=== PATIENT | female | born 1960 | race Caucasian/White ===

== ENCOUNTER → 2017-02-22 | Outpatient (CLI) | payer MEDICARE, OTHER ==
--- NOTE | 2017-02-22 12:26 | MR ---
EXAMINATION TYPE: MR cspine/tspine wo/w con DATE OF EXAM: 02/22/2017 COMPARISON: NONE HISTORY: WHITE MATTER CHANGE, CERVICAL PAIN TECHNIQUE: Multiplanar, multisequence images of the lumbar spine is performed without and with IV contrast, util izing 20 mL intravenous MultiHance FINDINGS: Sagittal images of the lumbar spine show vertebral body heights and alignment to appear sat isfactory. Disc desiccation is seen at C5-C6 and C6-C7. The remaining intervertebral discs demonstrat e normal heights and hydration. Small disc osteophyte complexes without spinal canal stenosis are se en at C2-C3, C3-C4, C4-C5, C5-C6, and C6-C7. No evidence for neuroforaminal narrowing. Uncovertebral hypertrophy are seen at C5-C6 and C6-C7. Degenerative endplate changes are also visualized at these l evels. The conus medullaris is normal in position and signal. The bone marrow signal intensity is wi thin normal limits. There is straightening of the usual cervical lordosis, which can be due to muscul ar strain or patient positioning. There is no no focal disc disease, or facet degenerative change at any thoracic level. There is no s oskar canal stenosis, neural foraminal narrowing, or evidence of nerve root compromise throughout the thoracic spine. No abnormal enhancement is appreciated within the cervical or thoracic spine. No cervical or thoracic white matter plaques are appreciated. No abnormal cord signal at any level. IMPRESSION: 1. No evidence of demyelinating disease or abnormal enhancement within the cervical or thoracic spine . 2. Mild degenerative disc disease of the cervical spine most pronounced at C5-C6 and C6-C7. 3. Straightening of the usual cervical lordosis which may be related to muscular strain or patient po sitioning.
--- NOTE | 2017-02-23 11:56 | MM ---
Reason for exam: screening (asymptomatic). Last mammogram was performed 1 year ago. History: Patient is postmenopausal. Family history of breast cancer in maternal aunt at age 40. Benign excisional biopsy of the right breast, 1998. Physical Findings: A clinical breast exam by your physician is recommended on an annual basis and results should be correlated with mammographic findings. MG 3D Screening Mammo W/Cad Bilateral CC and MLO view(s) were taken. Prior study comparison: February 20, 2016, bilateral MG 3d screening mammo w/cad. July 22, 2012, bilateral digital screening mammo w/CAD. July 07, 2011, bilateral digital screening mammo w/CAD. There are scattered fibroglandular densities. There is chronic nodularity bilaterally. No significant changes when compared with prior studies. ASSESSMENT: Negative, BI-RAD 1 RECOMMENDATION: Routine screening mammogram of both breasts in 1 year.
== END | disposition home or self-care (01) ==
LOC: RADMRIMAIN 10:13
PROVIDERS: ATTEND Family Medicine
DX: Z12.31 Encounter for screening mammogram for malignant neoplasm of breast (principal); M50.322 Other cervical disc degeneration at C5-C6 level
CPT/HCPCS: 77063; 72156; 72157; G0202; A9577

== ENCOUNTER → 2017-06-08 | Outpatient (CLI) | payer MEDICARE, OTHER ==
[2017-06-08 11:30] LABS: Basophils % (A) 0 %; CH 29.5; CHCM 32.3; Eosinophils # (A) 0.1 k/uL (0-0.7); Eosinophils % (A) 2 %; HCT 39.3 % (34.0-46.0); HDW 2.34; HGB 12.6 gm/dL (11.4-16.0); Luc # (Auto) 0.09; Luc % (Auto) 2; Lymphocytes # (A) 2.9 k/uL (1.0-4.8); Lymphocytes % (A) 49 %; MCH 29.3 pg (25.0-35.0); MCV 91.8 fL (80.0-100.0); Mean Platelet Volume 7.5; Monocytes # (A) 0.3 k/uL (0-1.0); Monocytes % (A) 6 %; Neutrophils # (A) 2.5 k/uL (1.3-7.7); Neutrophils % (A) 42 %; RBC 4.28 m/uL (3.80-5.40); RDW 12.8 % (11.5-15.5); WBC 5.9 k/uL (3.8-10.6); WBC (Perox) 5.56
[2017-06-08 11:35] LABS: ALT 62 U/L (9-52); AST 51 U/L (14-36); Alkaline Phosphatase 84 U/L (38-126); Anion Gap 10 mmol/L; Blood Urea Nitrogen 6 mg/dL (7-17); C Reactive Protein 5.8 mg/L (<10.0); Carbon Dioxide 26 mmol/L (22-30); Chloride 107 mmol/L (98-107); Creatine Kinase 50 U/L (30-135); Glucose 103 mg/dL (74-99); LDH 607 U/L (313-618); Non-African American GFR(MDRD) >60 (>60 ml/min/1.73 sqM); Phosphorus 4.9 mg/dL (2.5-4.5); Potassium 3.9 mmol/L (3.5-5.1); Sodium 143 mmol/L (137-145); Total Bilirubin 0.2 mg/dL (0.2-1.3); Total Protein 6.5 g/dL (6.3-8.2); Uric Acid 7.1 mg/dL (3.7-7.4)
[2017-06-08 11:36] LABS: Rheumatoid Factor, Qnt <9 IU/mL (<12)
[2017-06-08 12:22] LABS: Erythrocyte Sedimentation Rate 24 mm/hr (0-20)
[2017-06-08 17:55] LABS: ANA w/Reflex to Titer NEGATIVE (NEGATIVE); Cyclic Citrull Pep IgG Unit <0.5 U/mL; Cyclic Citrullinated Pep IgG NEGATIVE (NEGATIVE); Tis Transglutaminase IgA Unit <0.5 AI; Tis Transglutaminase IgG Unit <0.8 U/mL
[2017-06-09 12:19] LABS: Vitamin D, 1, 25-Dihydroxy 29 pg/mL (20 - 79)
[2017-06-09 12:51] LABS: HLA B27 Comment SEEBELOW
[2017-06-09 14:24] LABS: Hepatits C Virus RNA, Quant <12 IU/mL (<12); LOG HCV IU/mL <1.08 (<1.08)
[2017-06-11 10:03] LABS: Lyme IgG/IgM 0.1 Index; Lyme IgG/IgM Interp NEGATIVE (NEGATIVE)
[2017-06-14 08:13] LABS: Mis test requested (Blood) 14-3-3 eta Protein
== END | disposition home or self-care (01) ==
LOC: LABWHC1 10:22
PROVIDERS: ATTEND Physical Medicine & Rehabilitation
DX: M50.122 Cervical disc disorder at C5-C6 level with radiculopathy (principal); M47.22 Other spondylosis with radiculopathy, cervical region; G43.719 Chronic migraine without aura, intractable, without status migrainosus; F41.9 Anxiety disorder, unspecified; M79.7 Fibromyalgia
CPT/HCPCS: 36415; 80053; 82164; 82306; 82550; 82553; 82607; 82652; 83516; 83520; 83615; 83970; 84100; 84165; 84207; 84425; 84439; 84443; 84550; 85025; 85652; 86038; 86060; 86140; 86200; 86235; 86431; 86618; 86812; 87522

== ENCOUNTER → 2018-03-01 | Outpatient (CLI) | payer MEDICARE, OTHER ==
--- NOTE | 2018-03-03 11:14 | MM ---
Reason for exam: screening (asymptomatic). Last mammogram was performed 1 year ago. History: Patient is postmenopausal. Family history of breast cancer in maternal aunt at age 40. Benign excisional biopsy of the right breast, 1998. Physical Findings: A clinical breast exam by your physician is recommended on an annual basis and results should be correlated with mammographic findings. MG 3D Screening Mammo W/Cad Bilateral CC and MLO view(s) were taken. Prior study comparison: February 22, 2017, bilateral MG 3d screening mammo w/cad. February 20, 2016, bilateral MG 3d screening mammo w/cad. There are scattered fibroglandular densities. No significant changes when compared with prior studies. ASSESSMENT: Benign, BI-RAD 2 RECOMMENDATION: Routine screening mammogram of both breasts in 1 year.
== END | disposition home or self-care (01) ==
LOC: RADMAMWWP 09:46
PROVIDERS: ATTEND Family Medicine
DX: Z12.31 Encounter for screening mammogram for malignant neoplasm of breast (principal)
CPT/HCPCS: 77063; 77067

== ENCOUNTER → 2018-03-21 | Outpatient (CLI) | payer MEDICARE, OTHER ==
--- NOTE | 2018-03-21 14:16 | US ---
EXAMINATION TYPE: US carotid duplex BILAT DATE OF EXAM: 03/21/2018 COMPARISON: NONE CLINICAL HISTORY: R51 chronic headaches. family hx of strokes. No HTN. No high cholesterol. No hx of stroke. EXAM MEASUREMENTS: RIGHT: Peak Systolic Velocity (PSV) cm/sec ----- Right CCA: 77.6 ----- Right ICA: 90.1 ----- Right ECA: 65.3 ICA/CCA ratio: 1.2 RIGHT: End Diastole cm/sec ----- Right CCA: 30.3 ----- Right ICA: 43.5 ----- Right ECA: 13.0 LEFT: Peak Systolic Velocity (PSV) cm/sec ----- Left CCA: 59.8 ----- Left ICA: 92.7 ----- Left ECA: 54.5 ICA/CCA ratio: 1.5 LEFT: End Diastole cm/sec ----- Left CCA: 27.6 ----- Left ICA: 34.4 ----- Left ECA: 12.5 VERTEBRALS (direction of flow): Right Vertebral: Antegrade Left Vertebral: Antegrade Rhythm: Normal IMPRESSION: No elevated velocities, significant stenosis, plaque or wall thickening. Criteria for Assigning % of Stenosis / Diameter reduction (Estimation based on the indirect measurements of the internal carotid artery velocities (ICA PSV). 1. Normal (no stenosis)=ICA PSV < 125 cm/s: ratio < 2.0: ICA EDV<40 cm/s. 2. Less than 50% stenosis=ICA PSV < 125 cm/s: ratio < 2.0: ICA EDV<40 cm/s. 3. 50 to 69% stenosis=ICA PSV of 125 to 230 cm/s: ration 2.0 ? 4.0: ICA EDV 40-100 cm/s. 4. Greater than 70% stenosis to near occlusion= ICA PSV > 230 cm/s: ratio > 4.0: ICA EDV > 100 cm/s. 5. Near occlusion= ICA PSV velocities may be low or undetectable: variable ratio and ICA EDV. 6. Total occlusion=unable to detect flow.
--- NOTE | 2018-03-21 15:36 | BD ---
EXAMINATION TYPE: Axial Bone Density DATE OF EXAM: 03/21/2018 COMPARISON: NONE CLINICAL HISTORY: Height: 5'1 Weight: 226 FRAX RISK QUESTIONS: Secondary Osteoporosis: RISK FACTORS HISTORY OF: Surgery to Spine/ When: lumbar 2009 Postmenopausal woman: y MEDICATIONS: Additional Medications: Additional History: EXAM MEASUREMENTS: Bone mineral densitometry was performed using the Savelli System. Bone mineral density about the R hip (g/cm2): 0.883 Bone mineral density about the L hip (g/cm2): 0.859 T Score values are as follows: -----R Neck: -1.1 -----L Neck: -1.3 -----R Total: 0.8 -----L Total: 1.2 Bone mineral density about the L Wrist (g/cm2): 0.673 T Score values are as follows: -----Dist. R+U: -0.1 -----Prox. R+U: -0.1 -----Radius total: 0.0 IMPRESSION: No evidence for osteoporosis or osteopenia. NOTE: T-SCORE=SD OF THE YOUNG ADULT MEAN.
== END | disposition home or self-care (01) ==
LOC: RADUSWWP 13:09
PROVIDERS: ATTEND Family Medicine
DX: R51 Headache (principal); Z13.820 Encounter for screening for osteoporosis; Z82.49 Family history of ischemic heart disease and other diseases of the circulatory system
CPT/HCPCS: 77080; 93880

== ENCOUNTER → 2018-09-13 | Outpatient (CLI) | payer MEDICARE, OTHER ==
--- NOTE | 2018-09-13 15:56 | CT ---
EXAMINATION TYPE: CT sinus wo con DATE OF EXAM: 09/13/2018 COMPARISON: NONE HISTORY: Cough and sinus congestion x 3+ months. CT DLP: 587.5 mGycm. Automated Exposure Control for Dose Reduction was Utilized. TECHNIQUE: CT scan of the sinuses is performed without contrast, axial images are obtained, coronal r eformatted images are also reviewed. FINDINGS: There is 2.2 cm mucous retention cyst or polyp in inferior right maxillary sinus. There is additional 1.3 cm anterolateral mucous retention cyst or polyp in the right maxillary sinus. There is smaller 10 x 5 mm mucous retention cyst or polyp anterior left maxillary sinus. Remainder paranasal sinuses are clear without suspicious opacification or air-fluid levels The ostiomeatal complex is pat ent bilaterally on the coronal images. Visualized portion of mastoid air cells show no abnormal opacification. The globes are intact bilate rally. IMPRESSION: Chronic maxillary sinus disease. No acute sinusitis.
--- NOTE | 2018-09-14 03:26 | XR ---
EXAMINATION TYPE: XR chest 2V DATE OF EXAM: 09/13/2018 COMPARISON: None HISTORY: 58-year-old female with cough TECHNIQUE: Frontal and lateral views FINDINGS: The cardiomediastinal silhouette, aorta, and pulmonary vasculature are within normal limits. Some haz y lower lung densities related to overlying soft tissue densities. No arlene consolidation or pleural effusion seen. IMPRESSION: No acute cardiopulmonary process.
== END ==
LOC: RADCTMAIN 13:35
PROVIDERS: ATTEND Otolaryngology
DX: J32.0 Chronic maxillary sinusitis (principal); R05 Cough
CPT/HCPCS: 70486; 71046

== ENCOUNTER → 2018-09-30 | Outpatient (CLI) | payer MEDICARE, OTHER ==
--- NOTE | 2018-09-30 11:12 | CT ---
EXAMINATION TYPE: CT urogram wo/w con DATE OF EXAM: 09/30/2018 COMPARISON: None HISTORY: Hematuria CT DLP: 3296 mGycm CONTRAST: Performed and without and with IV Contrast, patient injected with 100 mL of Isovue 300. CT Urography was performed with unenhanced followed by enhanced images of the kidneys, ureters and ur inary bladder. Delayed images were obtained. 3d reconstruction was performed at a separate work sta tion. FINDINGS: KIDNEYS/BLADDER: No hydronephrosis. No nephrolithiasis. No distinct solid renal mass. 1 cm cyst up per pole right kidney. Urinary bladder grossly unremarkable. Poor opacification of the distal right u reter throughout the course of the examination. Left ureter is visualized throughout its course and a ppears unremarkable. LUNG BASES-: No visible nodule. No infiltrate. LIVER/GB: No calcified gallstones. No space occupying hepatic lesion. Biliary tree is of normal ca liber. PANCREAS: No inflammation. No distinct mass. SPLEEN: No splenic enlargement. No lesion seen. ADRENALS: No nodule. No thickening. BOWEL: Normal appendix. Normal bowel caliber. No inflammation. GENITAL ORGANS: Focal ovarian calcifications noted. Uterus is unremarkable. LYMPH NODES: No greater than 1cm abdominal or pelvic lymph nodes are appreciated. AORTA: No significant abnormality. OSSEOUS STRUCTURES: No significant abnormality is seen. OTHER: No significant additional abnormality is seen. IMPRESSION: 1. No distinct abnormality identified to account for the patient's symptoms however the distal right ureter cannot be visualized throughout the course of the examination. Correlate clinically.
== END | disposition home or self-care (01) ==
LOC: RADCTMAIN 08:29
PROVIDERS: ATTEND Urology
DX: R31.9 Hematuria, unspecified (principal); Z88.0 Allergy status to penicillin; Z88.8 Allergy status to other drugs, medicaments and biological substances
CPT/HCPCS: 74178; 74400; Q9967

== ENCOUNTER → 2019-03-02 | Outpatient (CLI) | payer MEDICARE, OTHER ==
--- NOTE | 2019-03-03 09:21 | MM ---
Reason for exam: screening (asymptomatic). Last mammogram was performed 1 year ago. History: Patient is postmenopausal. Family history of breast cancer in maternal aunt at age 40. Benign excisional biopsy of the right breast, 1998. Physical Findings: A clinical breast exam by your physician is recommended on an annual basis and results should be correlated with mammographic findings. MG 3D Screening Mammo W/Cad Bilateral CC and MLO view(s) were taken. Prior study comparison: March 01, 2018, bilateral MG 3d screening mammo w/cad. February 22, 2017, bilateral MG 3d screening mammo w/cad. The breast tissue is heterogeneously dense. This may lower the sensitivity of mammography. There is no discrete abnormality. No significant changes when compared with prior studies. ASSESSMENT: Negative, BI-RAD 1 RECOMMENDATION: Routine screening mammogram of both breasts in 1 year.
== END | disposition home or self-care (01) ==
LOC: RADMAMWWP 08:58
PROVIDERS: ATTEND Family Medicine
DX: Z12.31 Encounter for screening mammogram for malignant neoplasm of breast (principal)
CPT/HCPCS: 77063; 77067

== ENCOUNTER 2019-08-21 10:33 | Observation (INO) | payer MEDICARE, OTHER ==
[2019-08-21] MEDS ORDERED: ASPIRIN 81 MG PO STA (10:55)
[2019-08-21] MEDS ORDERED: NITROGLYCERIN SL TABS 0.4 MG TAB SUBLINGUAL STA ×3 (10:55)
--- NOTE | 2019-08-21 11:05 | ED ---
General Adult HPI - General Chief complaint: Chest Pain Stated complaint: Abn EKG/jaw pain Time Seen by Provider: 08/21/19 10:48 Source: patient, RN notes reviewed Mode of arrival: ambulatory Limitations: no limitations - History of Present Illness Initial comments: Patient is a pleasant 59-year-old female presenting to the emergency Department with chest discomfort. Discomfort is described as tightness and considered mild rated 3 or 4/10. Discomfort started this morning after cleaning off her car. Patient did get a little bit sweaty with walking into the doctor's office. Patient went to urgent care and was advised to come to the hospital. Patient has been having some left jaw discomfort over the past few days. No history of similar symptoms previously. No associated nausea or dyspnea. No calf pain - Related Data Home Medications Medication Instructions Recorded Confirmed ALPRAZolam [Xanax] 0.25 mg PO TID PRN 08/21/19 08/21/19 Allergy Relief (Unknown) 1 tab PO DAILY PRN 08/21/19 08/21/19 Benzonatate [Tessalon Perles] 200 mg PO TID PRN 08/21/19 08/21/19 Cyclobenzaprine [Flexeril] 10 mg PO HS PRN 08/21/19 08/21/19 Fluticasone Nasal [place] [Flonase 1 spray EA NOSTRIL DAILY 08/21/19 08/21/19 Nasal [place]] Montelukast [Singulair] 10 mg PO DAILY PRN 08/21/19 08/21/19 traMADol HCL 50 mg PO TID PRN 08/21/19 08/21/19 Allergies Allergy/AdvReac Type Severity Reaction Status Date / Time Penicillins Allergy Unknown Verified 08/21/19 12:09 Childhood prochlorperazine AdvReac Hallucinati Verified 08/21/19 12:09 [From Compazine] ons Review of Systems ROS Statement: Those systems with pertinent positive or pertinent negative responses have been documented in the HPI. ROS Other: All systems not noted in ROS Statement are negative. Constitutional: Denies: fever Eyes: Denies: eye pain ENT: Denies: ear pain, throat pain, dental pain Respiratory: Denies: cough, dyspnea Cardiovascular: Reports: chest pain. Denies: palpitations Gastrointestinal: Denies: abdominal pain, vomiting Genitourinary: Denies: dysuria Musculoskeletal: Denies: back pain Skin: Denies: rash Neurological: Denies: weakness Past Medical History Past Medical History: No Reported History History of Any Multi-Drug Resistant Organisms: None Reported Past Surgical History: Back Surgery, Bladder Surgery, Section, Tonsillectomy Past Psychological History: Anxiety Smoking Status: Never smoker Past Alcohol Use History: None Reported Past Drug Use History: None Reported General Exam Limitations: no limitations General appearance: alert, in no apparent distress Head exam: Present: normocephalic Eye exam: Present: normal appearance ENT exam: Present: normal oropharynx Neck exam: Present: normal inspection Respiratory exam: Present: normal lung sounds bilaterally Cardiovascular Exam: Present: regular rate, normal rhythm Expanded Peripheral pulses: 2+: Radial (R), Radial (L), Posterior Tibialis (R), Posterior Tibialis (L), Dorsalis Pedis (R), Dorsalis Pedis (L) GI/Abdominal exam: Present: soft. Absent: tenderness Extremities exam: Present: normal inspection. Absent: calf tenderness Neurological exam: Present: alert Psychiatric exam: Present: normal affect, normal mood Skin exam: Present: normal color Course Vital Signs 08/21/19 08/21/19 08/21/19 10:40 10:51 11:00 Temperature 98 F Pulse Rate 80 73 Respiratory 18 25 H 27 H Rate Blood Pressure 150/87 O2 Sat by Pulse 97 Oximetry 08/21/19 08/21/19 11:41 11:47 Temperature Pulse Rate 80 82 Respiratory 18 18 Rate Blood Pressure 143/95 128/79 O2 Sat by Pulse 98 97 Oximetry EKG Findings - EKG Comments: EKG Findings:: Normal sinus rhythm 74. SC 150. QRS 84. QT 360. QTC 399. Normal axis. Normal QRS. No acute ST change. Medical Decision Making - Medical Decision Making Patient reevaluated and resting comfortably in bed. Chest discomfort has improved. Jaw discomfort did have some transient improvement with nitroglycerin. Patient updated on results and plan. Case was discussed with Dr Federica Meade, who will admit for Dr. crandall. - Lab Data Result diagrams: 08/21/19 11:01 08/21/19 11:01 Lab Results 08/21/19 08/21/19 08/21/19 Range/Units 11:01 11: 11: WBC 8.4 (3.8-10.6) k/uL RBC 4.39 (3.80-5.40) m/uL Hgb 13.4 (11.4-16.0) gm/dL Hct 39.6 (34.0-46.0) % MCV 90.1 (80.0-100.0) fL MCH 30.5 (25.0-35.0) pg MCHC 33.9 (31.0-37.0) g/dL RDW 12.0 (11.5-15.5) % Plt Count 324 (150-450) k/uL Neutrophils % 51 % Lymphocytes % 41 % Monocytes % 4 % Eosinophils % 1 % Basophils % 1 % Neutrophils # 4.2 (1.3-7.7) k/uL Lymphocytes # 3.4 (1.0-4.8) k/uL Monocytes # 0.4 (0-1.0) k/uL Eosinophils # 0.1 (0-0.7) k/uL Basophils # 0.1 (0-0.2) k/uL PT 10.1 (9.0-12.0) sec INR 1.0 (<1.2) APTT 23.2 (22.0-30.0) sec D-Dimer 0.58 (<0.60) mg/L FEU Sodium 138 (137-145) mmol/L Potassium 3.9 (3.5-5.1) mmol/L Chloride 105 (98-107) mmol/L Carbon Dioxide 21 L (22-30) mmol/L Anion Gap 12 mmol/L BUN 11 (7-17) mg/dL Creatinine 0.76 (0.52-1.04) mg/dL Est GFR (CKD-EPI)AfAm >90 (>60 ml/min/1.73 sqM) Est GFR (CKD-EPI)NonAf 86 (>60 ml/min/1.73 sqM) Glucose 90 (74-99) mg/dL Calcium 9.6 (8.4-10.2) mg/dL Magnesium 1.6 (1.6-2.3) mg/dL Total Bilirubin 0.5 (0.2-1.3) mg/dL AST 37 H (14-36) U/L ALT 38 H (4-34) U/L Alkaline Phosphatase 84 (38-126) U/L Troponin I (0.000-0.034) ng/mL Total Protein 7.0 (6.3-8.2) g/dL Albumin 4.1 (3.5-5.0) g/dL 08/21/19 Range/Units 11:01 WBC (3.8-10.6) k/uL RBC (3.80-5.40) m/uL Hgb (11.4-16.0) gm/dL Hct (34.0-46.0) % MCV (80.0-100.0) fL MCH (25.0-35.0) pg MCHC (31.0-37.0) g/dL RDW (11.5-15.5) % Plt Count (150-450) k/uL Neutrophils % % Lymphocytes % % Monocytes % % Eosinophils % % Basophils % % Neutrophils # (1.3-7.7) k/uL Lymphocytes # (1.0-4.8) k/uL Monocytes # (0-1.0) k/uL Eosinophils # (0-0.7) k/uL Basophils # (0-0.2) k/uL PT (9.0-12.0) sec INR (<1.2) APTT (22.0-30.0) sec D-Dimer (<0.60) mg/L FEU Sodium (137-145) mmol/L Potassium (3.5-5.1) mmol/L Chloride (98-107) mmol/L Carbon Dioxide (22-30) mmol/L Anion Gap mmol/L BUN (7-17) mg/dL Creatinine (0.52-1.04) mg/dL Est GFR (CKD-EPI)AfAm (>60 ml/min/1.73 sqM) Est GFR (CKD-EPI)NonAf (>60 ml/min/1.73 sqM) Glucose (74-99) mg/dL Calcium (8.4-10.2) mg/dL Magnesium (1.6-2.3) mg/dL Total Bilirubin (0.2-1.3) mg/dL AST (14-36) U/L ALT (4-34) U/L Alkaline Phosphatase (38-126) U/L Troponin I <0.012 (0.000-0.034) ng/mL Total Protein (6.3-8.2) g/dL Albumin (3.5-5.0) g/dL - Radiology Data Radiology results: image reviewed (Chest x-ray shows no acute process) Disposition Clinical Impression: Chest pain Disposition: ADMITTED IP TO THIS HOSP Is patient prescribed a controlled substance at d/c from ED?: No Referrals: Rosenda Watkins MD [Primary Care Provider] - 1-2 days Decision Time: 12:31
[2019-08-21 11:27] LABS: ALT 38 U/L (4-34); AST 37 U/L (14-36); African American GFR (CKD) >90 (>60 ml/min/1.73 sqM); Albumin 4.1 g/dL (3.5-5.0); Alkaline Phosphatase 84 U/L (38-126); Anion Gap 12 mmol/L; Blood Urea Nitrogen 11 mg/dL (7-17); Calcium 9.6 mg/dL (8.4-10.2); Carbon Dioxide 21 mmol/L (22-30); Chloride 105 mmol/L (98-107); Glucose 90 mg/dL (74-99); Magnesium 1.6 mg/dL (1.6-2.3); Non-African American GFR(CKD) 86 (>60 ml/min/1.73 sqM); Potassium 3.9 mmol/L (3.5-5.1); Sodium 138 mmol/L (137-145); Total Bilirubin 0.5 mg/dL (0.2-1.3)
[2019-08-21 11:32] LABS: D-Dimer 0.58 mg/L FEU (<0.60); Partial Thromboplastin Time 23.2 sec (22.0-30.0); Prothrombin Time 10.1 sec (9.0-12.0)
--- NOTE | 2019-08-21 11:44 | XR ---
EXAMINATION TYPE: XR chest 2V DATE OF EXAM: 08/21/2019 COMPARISON: 09/13/2018 HISTORY: Chest pain TECHNIQUE: Frontal and lateral views of the chest are obtained. FINDINGS: There is no focal air space opacity, pleural effusion, or pneumothorax seen. The cardiac silhouette size is within normal limits. The osseous structures are intact. Mild multilevel degener ative change of the spine. IMPRESSION: No acute cardiopulmonary process.
[2019-08-21 11:49] LABS: Basophils # (A) 0.1 k/uL (0-0.2); Basophils % (A) 1 %; Eosinophils # (A) 0.1 k/uL (0-0.7); Eosinophils % (A) 1 %; HCT 39.6 % (34.0-46.0); HGB 13.4 gm/dL (11.4-16.0); Lymphocytes # (A) 3.4 k/uL (1.0-4.8); Lymphocytes % (A) 41 %; MCH 30.5 pg (25.0-35.0); MCHC 33.9 g/dL (31.0-37.0); MCV 90.1 fL (80.0-100.0); Mean Platelet Volume 7.9; Monocytes # (A) 0.4 k/uL (0-1.0); Monocytes % (A) 4 %; Neutrophils # (A) 4.2 k/uL (1.3-7.7); Neutrophils % (A) 51 %; Platelet Count 324 k/uL (150-450); RBC 4.39 m/uL (3.80-5.40); WBC 8.4 k/uL (3.8-10.6)
[2019-08-21] MEDS ORDERED: ACETAMINOPHEN TAB 500 MG TAB PO STA (12:14)
[2019-08-21] MEDS ORDERED: NITROGLYCERIN SL TABS 0.4 MG TAB SUBLINGUAL PRN (12:31)
[2019-08-21] MEDS ORDERED: MORPHINE SULFATE 4 MG/ML SYRINGE IV STA (12:32)
[2019-08-21] MEDS ORDERED: BENZONATATE 100 MG CAP PO PRN (13:05)
[2019-08-21] MEDS ORDERED: traMADol 50 MG TAB PO PRN (13:05)
[2019-08-21] MEDS ORDERED: ALPRAZolam 0.25 MG TAB PO PRN (13:05)
[2019-08-21] MEDS ORDERED: CYCLOBENZAPRINE 10 MG TAB PO PRN (13:05)
[2019-08-21] MEDS ORDERED: MONTELUKAST 10 MG TAB PO PRN (13:05)
[2019-08-21] MEDS ORDERED: ONDANSETRON 4 MG/2 ML VIAL IVP PRN (13:06)
[2019-08-21] MEDS ORDERED: IBUPROFEN 400 MG TAB PO PRN (13:06)
--- NOTE | 2019-08-21 13:09 | P.HPIM ---
History of Present Illness H&P Date: 08/21/19 This is a 59-year-old female who presented to the emergency department on 08/21/2019 following to the urgent care for chest pressure and jaw pain. Patient states that the jaw pain started on 08/17/2019. Patient states on 08/20/2019 she began experiencing diarrhea that lasted 2 hours. Patient states she is also experiencing headache where she describes that the top of her head, heartburn, indigestion. Patient states that her chest pressure is midsternal to left breast and feels tight. Nothing has relieved jaw pain or chest pain. Patient states that the pain is constant in both areas. Patient was seen in urgent care today on 08/21/2019 for these complaints in which an ECG was done. Patient was told that the EKG was abnormal and directed to be transferred to the emergency department. Patient was given nitroglycerin in the emergency department. Patient states she signed out AMA from urgent care and drove herself immediately to the emergency department. Patient is known to Dr. Sam salmeron. Patient states that she has had no previous cardiac history. Patient states that her family has a strong history of stroke. Patient states she had carotid Dopplers in 2019. Patient states she does not follow estrogen EKG completed. Patient states she has never had an echocardiogram or stress test. Patient states medical history otherwise is unremarkable. Initial troponin negative, EKG showing normal sinus rhythm with sinus arrhythmia, with a rate of 74 bpm. Chest x-ray completed showing no acute cardiopulmonary process.Patient denies any shortness of breath, patient denies any fever or chills, patient denies any nausea vomiting or any further diarrhea. Patient denies urinary bu rning or frequency. Patient denies being ill recently. Patient states she received her flu vaccination in June 2019. Cardiology services will be consulted. Serial troponins will be drawn. Patient will be admitted to observation with telemetry. Review of Systems Please see HPI otherwise unremarkable Past Medical History Past Medical History: No Reported History History of Any Multi-Drug Resistant Organisms: None Reported Past Surgical History: Back Surgery, Bladder Surgery, Section, Tonsillectomy Past Psychological History: Anxiety Smoking Status: Never smoker Past Alcohol Use History: None Reported Past Drug Use History: None Reported Medications and Allergies Home Medications Medication Instructions Recorded Confirmed Type ALPRAZolam [Xanax] 0.25 mg PO TID PRN 08/21/19 08/21/19 History Allergy Relief (Unknown) 1 tab PO DAILY PRN 08/21/19 08/21/19 History Benzonatate [Tessalon Perles] 200 mg PO TID PRN 08/21/19 08/21/19 History Cyclobenzaprine [Flexeril] 10 mg PO HS PRN 08/21/19 08/21/19 History Fluticasone Nasal [place] [Flonase 1 spray EA NOSTRIL DAILY 08/21/19 08/21/19 History Nasal [place]] Montelukast [Singulair] 10 mg PO DAILY PRN 08/21/19 08/21/19 History traMADol HCL 50 mg PO TID PRN 08/21/19 08/21/19 History Allergies Allergy/AdvReac Type Severity Reaction Status Date / Time Penicillins Allergy Unknown Verified 08/21/19 12:09 Childhood prochlorperazine AdvReac Hallucinati Verified 08/21/19 12:09 [From Compazine] ons Physical Exam Vitals: Vital Signs Temp Pulse Resp BP Pulse Ox 08/21/19 11:47 82 18 128/79 97 08/21/19 11:41 80 18 143/95 98 08/21/19 11:00 73 27 H 08/21/19 10:51 25 H 08/21/19 10:40 98 F 80 18 150/87 97 Intake and Output 08/20/19 08/21/19 08/21/19 22:59 06:59 14:59 Other: Weight 108.862 kg Head normocephalic Neck supple. Left jaw tender to palpation. Lungs clear to auscultation bilaterally no wheezing or crackles Heart regular rate and rhythm S1-S2, no rub or gallop Abdomen is soft nontender nondistended positive bowel sounds no hepatosplenomegaly Extremities no edema Neuro alert and orientated to 3 Results CBC & Chem 7: 08/21/19 11:01 08/21/19 11:01 Labs: Abnormal Lab Results - Last 24 Hours (Table) 08/21/19 Range/Units 11:01 Carbon Dioxide 21 L (22-30) mmol/L AST 37 H (14-36) U/L ALT 38 H (4-34) U/L Assessment and Plan Assessment: 1. Chest pain. Initial troponin negative, ECG negative. Cardiology services will be consulted. Serial troponins will be drawn. 2. History of back surgery. Patient takes tramadol and Flexeril at home. 3. History of bladder surgery 4. History of seasonal ALLERGIES. Patient takes Singulair at home. GI prophylaxis Pepcid. DVT prophylaxis Lovenox Awaiting cardiology service consult Serial troponins are ordered Time with Patient: Greater than 30 (Greater than 60% of the total time spent in counseling and coordination of care. I performed an examination of the patient and discussed their management with the Nurse Practitioner. I have reviewed the Nurse Practitioner's notes and agree with the documented findings and plan of care)
[2019-08-21] MEDS: NITROGLYCERIN OINT 1 INCH/GM PACKET TOPICAL SCH ×2 (18:31→23:23)
[2019-08-21 23:05] VITALS: RESP 18
[2019-08-21] MEDS: ACETAMINOPHEN TAB 325 MG TAB PO PRN (23:25)
[2019-08-22] MEDS: NITROGLYCERIN OINT 1 INCH/GM PACKET TOPICAL SCH (04:35)
[2019-08-22 07:19] LABS: Basophils % (A) 0 %; Eosinophils # (A) 0.1 k/uL (0-0.7); Eosinophils % (A) 2 %; HCT 38.2 % (34.0-46.0); HGB 12.3 gm/dL (11.4-16.0); Lymphocytes % (A) 55 %; MCH 29.5 pg (25.0-35.0); MCHC 32.3 g/dL (31.0-37.0); MCV 91.3 fL (80.0-100.0); Mean Platelet Volume 7.6; Monocytes # (A) 0.2 k/uL (0-1.0); Monocytes % (A) 4 %; Neutrophils % (A) 37 %; Platelet Count 301 k/uL (150-450); RBC 4.18 m/uL (3.80-5.40); RDW 12.2 % (11.5-15.5); WBC 5.5 k/uL (3.8-10.6)
[2019-08-22 07:28] LABS: ALT 39 U/L (4-34); AST 38 U/L (14-36); African American GFR (CKD) >90 (>60 ml/min/1.73 sqM); Albumin 3.6 g/dL (3.5-5.0); Alkaline Phosphatase 80 U/L (38-126); Anion Gap 6 mmol/L; Blood Urea Nitrogen 8 mg/dL (7-17); Calcium 8.9 mg/dL (8.4-10.2); Carbon Dioxide 29 mmol/L (22-30); Chloride 104 mmol/L (98-107); Cholesterol 191 mg/dL (<200); Glucose 91 mg/dL (74-99); HDL Cholesterol 64 mg/dL (40-60); LDL Cholesterol,Calculated 99 mg/dL (0-99); Non-African American GFR(CKD) 83 (>60 ml/min/1.73 sqM); Sodium 139 mmol/L (137-145); Total Bilirubin 0.4 mg/dL (0.2-1.3); Total Protein 6.3 g/dL (6.3-8.2); Triglycerides 139 mg/dL (<150)
[2019-08-22 07:35] VITALS: TEMP 97.6
--- NOTE | 2019-08-22 08:08 | CONS ---
CONSULTATION Krupa Robles is a 59-year-old lady with a known history of what seems to be bronchial asthma/COPD, but no history of smoking. She came into the hospital mainly with complaints of having discomfort in her left jaw. This started almost a week ago and seems to persist on and off. But on questioning, she tells me that the jaw discomfort has been constant for a week without interruption. The pain starts in the jaw and remains in the jaw with no radiation. Yesterday while she was cleaning the snow off her car, she developed some chest pressure and then came into the urgent care who referred her to the hospital here in [facility]. At the time of my evaluation, she is resting comfortably without symptoms. Her discomfort has completely resolved. She has had a previous stress test more than 5 to 6 years ago. Does not remember the details. Quality of her chest discomfort seems very atypical. Jaw discomfort does not suggest angina. PAST MEDICAL HISTORY: Remarkable for some back surgery performed several years ago. She had a section and tonsillectomy. She does not have hypertension, diabetes, myocardial infarction or CVA. MEDICATIONS: Medications include Xanax, Flexeril, Singulair, tramadol. ALLERGIES: She is allergic to PENICILLIN and COMPAZINE. After arrival, her 3 sets of troponins are normal. Her EKG does not reveal any acute changes. PHYSICAL EXAMINATION: On examination, blood pressure is 120/70, pulse rate is about 80 per minute regular. HEENT: Unremarkable. Fundus was not examined by me. Neck is supple. There is no JVD. I do not hear a carotid bruit. There is no thyromegaly. Heart exam reveals S1, S2 heard normally. Slightly tachycardic. No significant rub, murmur or gallop. Lungs are clear. Abdomen is soft, nontender. Lower extremities reveal palpable pulses. No edema. Central nervous system is normal. EKG revealed a sinus mechanism with minor nonspecific precordial ST-T abnormality. LABORATORY DATA: Laboratory data revealed that all the labs are unremarkable. D-dimer is normal. Troponins are normal. IMPRESSION: 1. Atypical chest pain. 2. History of bronchial asthma/asthmatic bronchitis. 3. History of back surgery in the past. RECOMMENDATIONS: I am recommending that we add a small dose of metoprolol tartrate 12.5 mg b.i.d. I am recommending that we perform an echocardiogram and a stress echo and if these are normal, she can be discharged. We will continue her current medical regimen, increase activity. I discussed my thoughts in detail with the patient as well as her son, who was here. HAMILTON / FRANCK: [id number] /
[2019-08-22] MEDS ORDERED: METOPROLOL TARTRATE 12.5 MG TAB PO SCH (09:00)
[2019-08-22] MEDS ORDERED: FLUTICASONE 50MCG/SPRAY NASAL 16GM EA NOSTRIL SCH (09:00)
[2019-08-22] MEDS ORDERED: ENOXAPARIN 40 MG/0.4 ML SYRINGE SQ SCH (09:00)
[2019-08-22] MEDS ORDERED: FAMOTIDINE 20 MG TAB PO SCH (09:00)
[2019-08-22] MEDS ORDERED: ASPIRIN 325 MG TAB PO SCH (09:00)
[2019-08-22 11:54] VITALS: BP 158/77; PULSE 80
[2019-08-22] MEDS: ACETAMINOPHEN TAB 325 MG TAB PO PRN (12:00)
--- NOTE | 2019-08-22 14:25 | P.DS ---
Providers Date of admission: 08/21/19 12:31 Expected date of discharge: 08/22/19 Attending physician: Jewel Meade Consults: 08/21/19 12:31 Consult Physician Urgent Consulting Provider: Guillermo Tena Consult Reason/Comments: cp Do you want consulting provider notified?: Yes Primary care physician: Rosenda Watkins Hospital Course: Discharge diagnosis 1. Chest pain. Initial troponin negative, ECG negative. Cardiology services will be consulted. Serial troponins negative. Stress test per cardiology negative. Patient for discharge from cardiology standpoint. Patient has been started on low-dose beta jd 12.5 mg daily per cardiology 2. Jaw pain. No signs of swelling lymph node light tenderness to palpation. We'll discharge patient on Cleocin 150 3 times a day for 7 days patient educated that if pain does not subside she may need to follow up with neurology services possibly related to nerve pain. Patient to follow-up with PCP for further management. 3. History of back surgery. Patient takes tramadol and Flexeril at home. 4. History of bladder surgery 5. History of seasonal ALLERGIES. Patient takes Singulair at home. Hospital course This is a 59-year-old female who presented to the emergency department on 08/21/2019 following to the urgent care for chest pressure and jaw pain. Patient states that the jaw pain started on 08/17/2019. Patient states on 08/20/2019 she began experiencing diarrhea that lasted 2 hours. Patient states she is also experiencing headache where she describes that the top of her head, heartburn, indigestion. Patient states that her chest pressure is midsternal to left breast and feels tight. Nothing has relieved jaw pain or chest pain. Patient states that the pain is constant in both areas. Patient was seen in urgent care today on 08/21/2019 for these complaints in which an ECG was done. Patient was told that the EKG was abnormal and directed to be transferred to the emergency department. Patient was given nitroglycerin in the emergency department. Patient states she signed out AMA from urgent care and drove herself immediately to the emergency department. Patient is known to Dr. Watkins. Patient states that she has had no previous cardiac history. Patient states that her family has a strong history of stroke. Patient states she had carotid Dopplers in 2019. Patient states she does not follow estrogen EKG completed. Patient states she has never had an echocardiogram or stress test. Patient states medical history otherwise is unremarkable. Initial troponin negative, EKG showing normal sinus rhythm with sinus arrhythmia, with a rate of 74 bpm. Chest x-ray completed showing no acute cardiopulmonary process.Patient denies any shortness of breath, patient denies any fever or chills, patient denies any nausea vomiting or any further diarrhea. Patient denies urinary burning or frequency. Patient denies being ill recently. Patient states she received her flu vaccination in June 2019. Cardiology services will be consulted. Serial troponins will be drawn. Patient will be admitted to observation with telemetry. On 08/22/2019 patient is alert and oriented 3. Troponin negative 3. Patient has been started on low-dose beta jd per cardiology services. 2-D echo and stress test completed. Did discuss case with Rachelle nurse practitioner pepe for discharge. Patient still having consistent jaw pain. Will discharge patient on clindamycin 150 3 times a day for 7 days. Patient educated to follow up with PC P. If symptoms persist may need neurological workup for nerve pain. Patient denies a chest pain or shortness of breath. Patient denies nausea vomiting or diarrhea. Patient denies any urinary burning or frequency. I performed an examination of the patient and discussed their management with the Nurse Practitioner. I have reviewed the Nurse Practitioner's notes and agree with the documented findings and plan of care Patient Condition at Discharge: Stable Plan - Discharge Summary Discharge Rx Participant: No New Discharge Prescriptions: New Clindamycin [Cleocin] 150 mg PO TID 7 Days #21 cap Continue Fluticasone Nasal Webber [Flonase Nasal Webber] 1 spray EA NOSTRIL DAILY traMADol HCL 50 mg PO TID PRN PRN Reason: Pain Montelukast [Singulair] 10 mg PO DAILY PRN PRN Reason: Allergy Symptoms Benzonatate [Tessalon Perles] 200 mg PO TID PRN PRN Reason: Cough ALPRAZolam [Xanax] 0.25 mg PO TID PRN PRN Reason: Anxiety Cyclobenzaprine [Flexeril] 10 mg PO HS PRN PRN Reason: Muscle Spasm Allergy Relief (Unknown) 1 tab PO DAILY PRN PRN Reason: Allergy Symptoms Discharge Medication List ALPRAZolam [Xanax] 0.25 mg PO TID PRN 08/21/19 [History] Allergy Relief (Unknown) 1 tab PO DAILY PRN 08/21/19 [History] Benzonatate [Tessalon Perles] 200 mg PO TID PRN 08/21/19 [History] Cyclobenzaprine [Flexeril] 10 mg PO HS PRN 08/21/19 [History] Fluticasone Nasal Webber [Flonase Nasal Webber] 1 spray EA NOSTRIL DAILY 08/21/19 [History] Montelukast [Singulair] 10 mg PO DAILY PRN 08/21/19 [History] traMADol HCL 50 mg PO TID PRN 08/21/19 [History] Clindamycin [Cleocin] 150 mg PO TID 7 Days #21 cap 08/22/19 [Rx] Follow up Appointment(s)/Referral(s): Rosenda Watkins MD [Primary Care Provider] - 1-2 days
--- NOTE | 2019-08-22 14:43 | ECHOS ---
STRESS ECHOCARDIOGRAM INDICATIONS: Chest pain. MEDICATIONS: Flonase, Tramadol, Singulair, , Xanax, Flexeril, Allergy relief BASELINE HEART RATE: 87 BASELINE BLOOD PRESSURE: 150/92 MAXIMUM HEART RATE: 154 MAXIMUM BLOOD PRESSURE: 162/70 85% MPHR: 136 100% MPHR: 160 METS: 6.4 MAXIMUM STAGE REACHED: 1 TOTAL EXERCISE TIME: 4:40 CLINICAL INFORMATION: Baseline EKG revealed normal sinus rhythm with a precordial ST and T-wave abnormality of a nonspecific type. The patient walked on a standard Damion protocol for 4 minutes 40 seconds, achieved a maximal heart rate of 154 beats per minute which is well above 85% of predicted maximal. She developed fatigue, shortness of breath, but did not have angina or arrhythmia. EKG remained inconclusive with nonspecific ST changes. By EKG criteria, this is considered an inconclusive stress test with limited exercise capacity. Baseline echo images revealed normal wall motion and wall thickening of all segments. With Lumason contrast administration, the quality of images improved. At peak exercise there was good augmentation of left and wall motion wall thickening of all segments suggesting that there is no evidence of stress-induced ischemia on this study. IMPRESSION: 1. By EKG criteria, this is an inconclusive stress test because of resting EKG changes. Limited exercise capacity was noted. 2. Normal stress echocardiogram without evidence of ischemia. MMODL / IJN: [id number] /
[2019-08-22] MEDS ORDERED: CLINDAMYCIN 150 MG CAP PO SCH (18:00)
--- NOTE | 2019-08-23 07:52 | ECHOF ---
Referral Reason:CHEST PRESSURE MEASUREMENTS -------- HEIGHT: 154.9 cm WEIGHT: 108.9 kg BP: IVSd: 1.2 cm (0.6 - 1.1) LVIDd: 3.6 cm (3.9 - 5.3) LVPWd: 1.5 cm (0.6 - 1.1) IVSs: 1.5 cm LVIDs: 2.6 cm LVPWs: 1.5 cm Ao Diam: 2.8 cm (2.0 - 3.7) AV Cusp: 1.8 cm (1.5 - 2.6) LA Diam: 3.2 cm (2.7 - 3.8) MV EXCURSION: 14.642 mm (> 18.000) MV EF SLOPE: 48 mm/s (70 - 150) EPSS: 1.2 cm MV E Bertrand: 0.67 m/s MV DecT: 192 ms MV A Bertrand: 0.75 m/s MV E/A Ratio: 0.90 RAP: 5.00 mmHg RVSP: 11.51 mmHg FINDINGS -------- Sinus rhythm. This was a technically difficult study with suboptimal views. The left ventricular size is normal. There is mild concentric left ventricular hypertrophy. Overa ll left ventricular systolic function is normal with, an EF between 55 - 60 %. The right ventricle is normal in size. The left atrial size is normal. The right atrial size is normal. Lumason used The aortic valve is trileaflet and appears structurally normal. The mitral valve is normal. There is trace mitral regurgitation. The tricuspid valve appears structurally normal. Trace tricuspid regurgitation present. Right angela tricular systolic pressure is normal at < 35 mmHg. There is no pulmonic regurgitation present. The aortic root size is normal. IVC Not well visulized. There is no pericardial effusion. CONCLUSIONS -------- 1. Sinus rhythm. 2. This was a technically difficult study with suboptimal views. 3. The left ventricular size is normal. 4. There is mild concentric left ventricular hypertrophy. 5. Overall left ventricular systolic function is normal with, an EF between 55 - 60 %. 6. The right ventricle is normal in size. 7. The left atrial size is normal. 8. The right atrial size is normal. 9. Lumason used 10. The aortic valve is trileaflet and appears structurally normal. 11. The mitral valve is normal. 12. There is trace mitral regurgitation. 13. The tricuspid valve appears structurally normal. 14. Trace tricuspid regurgitation present. 15. Right ventricular systolic pressure is normal at < 35 mmHg. 16. There is no pulmonic regurgitation present. 17. The aortic root size is normal. 18. IVC Not well visulized. 19. There is no pericardial effusion. [employer] MK1 OPERATOR: Kristine Cavazos RDCS
== END 2019-08-22 15:46 | disposition home or self-care (01) ==
LOC: EC 10:33 → 1SOBS 12:31
PROVIDERS: ADMIT Internal Medicine; ATTEND Internal Medicine
DX: R07.89 Other chest pain (principal); R68.84 Jaw pain; F41.9 Anxiety disorder, unspecified; R94.31 Abnormal electrocardiogram [ECG] [EKG]; Z88.0 Allergy status to penicillin; Z79.891 Long term (current) use of opiate analgesic; Z79.899 Other long term (current) drug therapy; Z79.51 Long term (current) use of inhaled steroids; Z86.73 Personal history of transient ischemic attack (TIA), and cerebral infarction without residual deficits
CPT/HCPCS: 93005 ×2; 96374; 99285; 36415; 85379; 80061; 80053 ×2; 83735; 84484; 85025 ×2; 85610; 85730; 71046; G0378 ×2; C8929; C8930; J2270; Q9950; 93306; 93351

== ENCOUNTER → 2022-01-06 | Outpatient (CLI) | payer MEDICARE, OTHER ==
[2022-01-06 13:03] VITALS: BP 159/92; PULSE 82; RESP 17; TEMP 98.3
--- NOTE | 2022-01-06 14:41 | P.HPOB ---
History of Present Illness H&P Date: 01/06/22 Chief Complaint: The patient is here for her routine gynecologic exam. This is a 61-year-old with an LMP of 2014. The patient is here to establish with this office. She is without gynecologic complaints and denies any postmenopausal bleeding. She is requesting STD testing. She had a single unprotected sexual encounter with a man 4 months ago after not being sexually active for 7 years. She denies any unusual discharge or genital lesions. Review of Systems The patient's weight has been stable over the last year. She denies respiratory, cardiac, or G.I. problems. Past Medical History Past Medical History: Fibromyalgia, GERD/Reflux Additional Past Medical History / Comment(s): Low back pain, DDD, past migraines, IBS. Seasonal ALLERGIES. Microscopic hematuria with previous negative urologic workup. 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 History of Any Multi-Drug Resistant Organisms: None Reported Past Surgical History: Back Surgery, Bladder Surgery, Breast Surgery, Section, Tonsillectomy Additional Past Surgical History / Comment(s): Lumbar fusion L1-L4/S1-s2, cyst oscopy with benign tumors removed, R breast benign biopsy, colonoscopy 2001. section 2 Past Anesthesia/Blood Transfusion Reactions: Postoperative Nausea & Vomiting (PONV) Past Psychological History: Anxiety (She denies current depression.) Additional Psychological History / Comment(s): Pt resides in an apartment alone. She drives. No devices. Smoking Status: Never smoker Past Alcohol Use History: Rare (2 per year) Past Drug Use History: None Reported Additional History: She is . She is currently not seeing anybody at this time. 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 - Past Family History Mother Family Medical History: CVA/TIA, Vascular Disorder Father Additional Family Medical History / Comment(s): ETOH abuse. Paternal aunt had breast cancer. Brother(s) Family Medical History: CVA/TIA, Dementia Additional Family Medical History / Comment(s): Brother had massive cva. Sister(s) Family Medical History: Cancer, CVA/TIA Additional Family Medical History / Comment(s): PASSED FROM BREAST CANCER. Niece had uterine cancer. Medications and Allergies Home Medications Medication Instructions Recorded Confirmed Type ALPRAZolam [Xanax] 0.25 mg PO TID PRN 08/21/19 01/06/22 History Allergy Relief (Unknown) 1 tab PO DAILY PRN 08/21/19 01/06/22 History Cyclobenzaprine [Flexeril] 10 mg PO HS PRN 08/21/19 01/06/22 History Fluticasone Nasal [employer] [Flonase 1 spray EA NOSTRIL DAILY 08/21/19 01/06/22 History Nasal [employer]] buPROPion XL [Wellbutrin XL] 300 mg PO DAILY 01/06/22 01/06/22 History Allergies Allergy/AdvReac Type Severity Reaction Status Date / Time Penicillins Allergy Unknown Verified 01/06/22 12:56 Childhood prochlorperazine AdvReac Hallucinati Verified 01/06/22 12:56 [From Compazine] ons Exam Vital Signs Temp Pulse Resp BP Pulse Ox 01/06/22 12:56 98.3 F 82 17 159/92 98 Intake and Output 01/05/22 01/06/22 01/06/22 22:59 06:59 14:59 Other: Weight 112.491 kg Height 5 foot 1 inch, weight 248 pounds, BMI 46.9. This is a well-developed well-nourished heavyset white female who is alert and oriented times 3 in no acute distress. HEENT: Within normal limits. NECK: Supple without mass or thyromegaly. CHEST AND LUNGS: Clear to auscultation. HEART: Regular rate and rhythm. BREASTS: Are without mass or discharge. AXILLARY EXAM: Negative for adenopathy. BACK: Negative for CVA tenderness. ABDOMEN: Soft, nontender, without palpable masses. PELVIC EXAM: Normal external genitalia with mild atrophy. Cervix and vagina appear normal mild atrophy. The cervix appears nulliparous. There is no unusual discharge. There is no evidence of prolapse. The uterus is midposition, nongravid size and nontender. There are no palpable adnexal masses or tenderness. Bimanual examination is somewhat limited secondary to her size. RECTAL EXAM: Rectovaginal exam is negative for mass or tenderness and is negative for occult blood. EXTREMITIES: Nontender. IMPRESSION: 1. 61-year-old menopausal female with normal gynecologic exam. 2. The patient is requesting STD testing because of a single unprotected sexual encounter 4 months ago. 3. Elevated blood pressure. 4. History of microscopic hematuria per the patient. She states she has had a negative urologic workup in the past. PLAN: 1. Pap smear cotest was performed. 2. Self breast awareness was discussed with the patient. We have also discussed symptoms associated with inflammatory breast cancer. 3. Screening mammogram is due and she states she has an order slip for this from her PCP. She will schedule this for the near future. 4. GC and chlamydia testing has been obtained from the cervix. Trichomonas testing has been taken from the vagina. 5. We will also plan on doing blood testing for STDs and this will include HIV, RPR, hepatitis B surface antigen, and hepatitis C antibody. The order slip was given to the patient for this and she states she will have this done today. She understands that certain STDs can only be tested when there is an outbreak such as genital herpes. 6. STD prevention was discussed. I have stressed the importance of limiting sexual partners and I have recommended that she use condoms if she is sexually active. 7. She recently had a negative Cologuard test earlier this year. She will continue to follow up with her PCP for colorectal cancer screening. 8. She has not had a Covid vaccination. She understands the CDC recommends being vaccinated for Covid. She will consider this. 9. We have discussed her elevated blood pressure. I have recommended that she check her blood pressure at home on a regular basis since she does have a blood pressure cuff. She will follow up with her PCP for blood pressure elevations. 10. The patient is requesting to have hearing tested because of her history of microscopic hematuria. She is not having urinary symptoms. Urine will be sent for urinalysis and culture with sensitivities. 11. She was advised to return in one year for her annual well woman exam.
[2022-01-07 00:28] LABS: Hepatitis B Surface Antigen Nonreactive (Nonreactive); Hepatitis C IgG Antibody Nonreactive (Nonreactive)
[2022-01-07 01:04] LABS: Appearance,Urine Clear (Clear); Bilirubin,Urine Negative (Negative); Blood,Urine Moderate (Negative); Color,Urine Yellow (Yellow); Ketones,Urine Negative (Negative); Nitrite,Urine Negative (Negative); Specific Gravity,Urine 1.018 (1.001-1.030); Urobilinogen,Urine 0.2 (0.2,1.0)
[2022-01-07 02:40] LABS: Bacteria,Urine None Seen /HPF (None Seen)
--- NOTE | 2022-01-07 11:52 | P.PN ---
Progress Note - Text Progress Note Date: 01/07/22 OUTPATIENT FOLLOW-UP NOTE TEST(S)/RESULTS: Test results from 12/29/2021 include urinalysis showing moderate blood. This was negative for leukocyte esterase and nitrite. METHOD OF NOTIFICATION: A message with this result was left on the patient's voicemail. PATIENT COMMENTS: DIAGNOSIS: History of microscopic hematuria per the patient and she states she had a previous negative workup. Microscopic hematuria by urinalysis done on 12/29/2021. DISCUSSION: I have recommended that she follow up with her urologist for this persistent microscopic hematuria. PLAN: Await Urine culture which is pending.
[2022-01-07 14:33] LABS: C. trachomatis,PCR Negative (Neg,Equiv); Chlamydia trachomatis Source Cervix; N. gonorrhoeae,PCR Negative (Neg,Equiv); Neisseria Source Cervix
[2022-01-07 16:11] LABS: HIV 2 AB Non-Reactive (Non-Reactive); HIV AB P24 Non-Reactive (Non-Reactive); HIV P24 AG Non-Reactive (Non-Reactive)
== END | disposition home or self-care (01) ==
LOC: WWCWWP 12:43
PROVIDERS: ATTEND Obstetrics & Gynecology
DX: Z11.3 Encounter for screening for infections with a predominantly sexual mode of transmission (principal)
CPT/HCPCS: 81001; 86318; 86780; 86803; 87086; 87340; 87390; 87491; 87591; 87808

== ENCOUNTER → 2022-01-28 | Outpatient (CLI) | payer MEDICARE, OTHER ==
--- NOTE | 2022-01-29 10:18 | MM ---
Reason for Exam: Screening (asymptomatic). Last mammogram was performed 2 year(s) and 11 month(s) ago. Patient History: Menarche at age 11. First Full-Term at age 25. Postmenopausal. 1998, Benign Excisional Biopsy on the right side. Sister had breast cancer, age 72. Risk Values: Elba 5 year model risk: 3.5%. NCI Lifetime model risk: 15.4%. Prior Study Comparison: 02/22/2017 Bilateral Screening Mammogram, [facility]. 03/01/2018 Bilateral Screening Mammogram, [facility]. 03/02/2019 Bilateral Screening Mammogram, [facility]. Tissue Density: The breast tissue is almost entirely fat. Findings: Analyzed By CAD. There is no suspicious group of microcalcifications or new suspicious mass in either breast. Overall Assessment: Negative, BI-RAD 1 Management: Screening Mammogram of both breasts in 1 year. A clinical breast exam by your physician is recommended on an annual basis and results should be correlated with mammographic findings. Electronically signed and approved by: Dwayne Pena DO
== END | disposition home or self-care (01) ==
LOC: RADMAMWWP 15:41
PROVIDERS: ATTEND Pediatrics
DX: Z12.31 Encounter for screening mammogram for malignant neoplasm of breast (principal)
CPT/HCPCS: 77063; 77067

== ENCOUNTER → 2023-02-02 | Outpatient (CLI) | payer MEDICARE, OTHER ==
[2023-02-02 13:24] VITALS: BP 162/96; PULSE 78; RESP 18; TEMP 98.6
--- NOTE | 2023-02-02 14:02 | P.HPOB ---
History of Present Illness H&P Date: 02/02/23 Chief Complaint: The patient is here for her routine gynecologic exam and ma mmogram. This is a 62-year-old 102 with an LMP of 2013. The patient is without gynecologic complaints. She states she has not seen the urologist in the past year. I recommended that she see a urologist because of microscopic hematuria appear. She states many years ago she had "tumors" in the urethra. She had seen Dr. Paulino, the urologist, several years ago and has not had any follow-up since then. Review of Systems The patient has lost 4 pounds over the last year. She denies respiratory, cardiac, or G.I. problems. Past Medical History Past Medical History: Fibromyalgia, GERD/Reflux Additional Past Medical History / Comment(s): Low back pain, DDD, past migraines, IBS. Seasonal ALLERGIES. Microscopic hematuria with previous negative urologic workup. 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 History of Any Multi-Drug Resistant Organisms: None Reported Past Surgical History: Back Surgery, Bladder Surgery, Breast Surgery, Section, Tonsillectomy Additional Past Surgical History / Comment(s): Lumbar fusion L1-L4/S1-s2, cystoscopy with benign tumors removed, R breast benign biopsy, colonoscopy 2001. section 2 Past Anesthesia/Blood Transfusion Reactions: Postoperative Nausea & Vomiting (PONV) Past Psychological History: Anxiety Additional Psychological History / Comment(s): Pt resides in an apartment alone. She drives. No devices. Smoking Status: Never smoker Past Alcohol Use History: None Reported Past Drug Use History: None Reported Additional History: She is . She is not sexually active. She is retired. - Past Family History Mother Family Medical History: CVA/TIA, Vascular Disorder Father Additional Family Medical History / Comment(s): ETOH abuse. Paternal aunt had breast cancer. Brother(s) Family Medical History: CVA/TIA, Dementia Additional Family Medical History / Comment(s): Brother had massive cva. Sister(s) Family Medical History: Cancer, CVA/TIA Additional Family Medical History / Comment(s): PASSED FROM BREAST CANCER. Niece had uterine cancer. Medications and Allergies Home Medications Medication Instructions Recorded Confirmed Type ALPRAZolam [Xanax] 0.25 mg PO TID PRN 08/21/19 02/02/23 History Allergy Relief (Unknown) 1 tab PO DAILY PRN 08/21/19 02/02/23 History Cyclobenzaprine [Flexeril] 10 mg PO HS PRN 08/21/19 02/02/23 History Ergocalciferol [Vitamin D2 (1250 1,250 mcg PO WEEKLY 02/02/23 02/02/23 History Mcg = 12680 Iu)] Phentermine HCl 37.5 mg PO DAILY 02/02/23 02/02/23 History Allergies Allergy/AdvReac Type Severity Reaction Status Date / Time Penicillins Allergy Unknown Verified 02/02/23 13:19 Childhood prochlorperazine AdvReac Hallucinati Verified 02/02/23 13:19 [From Compazine] ons Exam Vital Signs Temp Pulse Resp BP Pulse Ox 02/02/23 13:20 98.6 F 78 18 162/96 98 Intake and Output 02/01/23 02/02/23 02/02/23 22:59 06:59 14:59 Other: Weight 110.677 kg Height 5 feet 1 inch, weight 244 pounds, BMI 46.1 This is a well-developed well-nourished heavyset white female who is alert and oriented times 3 in no acute distress. HEENT: Within normal limits. NECK: Supple without mass or thyromegaly. CHEST AND LUNGS: Clear to auscultation. HEART: Regular rate and rhythm. BREASTS: Are without mass or discharge. AXILLARY EXAM: Negative for adenopathy. BACK: Negative for CVA tenderness. ABDOMEN: Soft, nontender, without palpable masses. PELVIC EXAM: Normal external genitalia with mild atrophy. Cervix and vagina appear normal with mild atrophy. There is no unusual discharge. There is no evidence of prolapse. The uterus is midposition, nongravid size and nontender. There are no palpable adnexal masses or tenderness. Bimanual examination is somewhat limited secondary to her size. RECTAL EXAM: Rectovaginal exam is negative for mass or tenderness and is negative for occult blood. EXTREMITIES: Nontender. IMPRESSION: 1. 62-year-old menopausal female with normal gynecologic exam. 2. History of the chronic microscopic hematuria. PLAN: 1. Pap smear was deferred since she had a negative Pap smear cotest on 01/06/2022. 2. Self breast awareness was discussed with the patient. We have also discussed symptoms associated with inflammatory breast cancer. 3. Screening mammogram will be done today. 4. Osteoporosis prevention was discussed. I have stressed the importance of adequate calcium, vitamin D and regular exercise. Recommended amounts of calcium and vitamin D were also discussed. She had a normal bone density test on 03/21/2018. She would like to repeat the bone density test next year. 5. I have stressed the importance of establishing with a urologist for her chronic hematuria. She had previously seen Dr. Carlton Paulino in the past and would like to see someone else. I have given her the name of Dr. Dugan, or she can see somebody out of this area. She states she will try to establish with a urologist. 6. She has been doing colorectal cancer screening through her PCP using [facility] and she believes this was negative last year. 7. She was advised to return in one year for her annual well woman exam.
--- NOTE | 2023-02-03 20:49 | MM ---
Reason for Exam: Screening (asymptomatic). Last screening mammogram was performed 12 month(s) ago. Patient History: Menarche at age 11. First Full-Term at age 25. Postmenopausal. Patient has history of breast feeding. 1998, Benign Excisional Biopsy on the right side. Sister had breast cancer, age 72. Risk Values: Elba 5 year model risk: 3.6%. NCI Lifetime model risk: 14.9%. Prior Study Comparison: 03/01/2018 Bilateral Screening Mammogram, [facility]. 03/02/2019 Bilateral Screening Mammogram, [facility]. 01/28/2022 Bilateral MG 3D screening mammo w/cad, [facility]. Tissue Density: There are scattered fibroglandular densities. Findings: Analyzed By CAD. Areas of asymmetric density do not persist on either nipple in profile views or 3-D images. There is no suspicious group of microcalcifications or new suspicious mass in either breast. Overall Assessment: Benign, BI-RAD 2 Management: Screening Mammogram of both breasts in 1 year. See note below in regards to patient's increased 5 year Elba score. Patient should continue monthly self-breast exams. A clinical breast exam by your physician is recommended on an annual basis. This exam should not preclude additional follow-up of suspicious palpable abnormalities. Note on Elba scores and lifetime risk: 1. A Elba score greater than 3% is considered moderate risk. If this is the case, consider specialist referral to assess eligibility for a risk reducing agent. 2. If overall lifetime risk for the development of breast cancer is 20% or higher, the patient may qualify for future screening with alternating mammogram and breast MRI. Electronically signed and approved by: Chanelle Pruitt M.D. Radiologist
== END ==
LOC: WWCWWP 12:59
PROVIDERS: ATTEND Obstetrics & Gynecology
DX: Z12.31 Encounter for screening mammogram for malignant neoplasm of breast (principal); R31.29 Other microscopic hematuria; K21.9 Gastro-esophageal reflux disease without esophagitis; Z78.0 Asymptomatic menopausal state; Z80.3 Family history of malignant neoplasm of breast; Z88.0 Allergy status to penicillin; Z88.8 Allergy status to other drugs, medicaments and biological substances
CPT/HCPCS: 77063; 77067

== ENCOUNTER → 2023-03-30 | Outpatient (CLI) | payer MEDICARE, OTHER ==
--- NOTE | 2023-03-30 09:04 | CT ---
EXAMINATION TYPE: CT sinus wo con DATE OF EXAM: 03/30/2023 COMPARISON: 09/13/2018 HISTORY: Chronic sinusitis CT DLP: 465 mGycm. Automated Exposure Control for Dose Reduction was Utilized. TECHNIQUE: CT scan of the sinuses is performed without contrast, axial images are obtained, coronal r eformatted images are also reviewed. FINDINGS: There are 2 stable mucous retention cysts or polyps in the right maxillary sinus. The remaining paran trace sinuses are clear. There are no air-fluid levels to suggest acute sinusitis. The ostiomeatal complexes are patent. The intraorbital contents appear normal and symmetric. The mastoid air cells and middle ear cavities are well aerated. The osseous structures are intact. The nasal cavity is unremarkable. IMPRESSION: Stable chronic changes in the right maxillary sinus. No new abnormalities seen.
== END | disposition home or self-care (01) ==
LOC: RADCTMAIN 07:02
PROVIDERS: ATTEND Pediatrics
DX: J32.0 Chronic maxillary sinusitis (principal)
CPT/HCPCS: 70486

== ENCOUNTER → 2024-02-04 | Outpatient (CLI) | payer MEDICARE, OTHER ==
--- NOTE | 2024-02-04 13:04 | XR ---
EXAMINATION TYPE: XR chest 2V DATE OF EXAM: 02/04/2024 COMPARISON: 08/21/2019 HISTORY: Chest pain TECHNIQUE: Frontal and lateral views of the chest are obtained. FINDINGS: There is no focal air space opacity. No evidence for pneumothorax. No pleural effusion. The cardiac silhouette size is within normal limits. The osseous structures are grossly intact. IMPRESSION: 1. No acute cardiopulmonary process.
[2024-02-04 17:35] LABS: Chol/HDL Ratio 2.18 Ratio; LDL Cholesterol,Calculated 99.6 mg/dL (0.0-131.0)
== END | disposition home or self-care (01) ==
LOC: RADXRMAIN 09:31
PROVIDERS: ATTEND Pediatrics
DX: R05.9 Cough, unspecified (principal); L29.9 Pruritus, unspecified; Z79.899 Other long term (current) drug therapy
CPT/HCPCS: 71046; 80061

== ENCOUNTER → 2024-12-19 | Outpatient (CLI) | payer MEDICARE, OTHER ==
--- NOTE | 2024-12-20 09:21 | MM ---
Reason for Exam: Screening (asymptomatic). Last mammogram was performed 1 year(s) and 11 month(s) ago. Patient History: Menarche at age 11. First Full-Term at age 25. Postmenopausal. Patient has history of breast feeding. 1998, Benign Excisional Biopsy on the right side. Sister had breast cancer, age 72. Risk Values: Elba 5 year model risk: 3.8%. NCI Lifetime model risk: 14.0%. Prior Study Comparison: 02/22/2017 Bilateral Screening Mammogram, [facility]. 03/01/2018 Bilateral Screening Mammogram, [facility]. 03/02/2019 Bilateral Screening Mammogram, [facility]. 01/28/2022 Bilateral MG 3D screening mammo w/cad, [facility]. 02/02/2023 Bilateral MG 3D screening mammo w/cad, [facility]. Tissue Density: There are scattered areas of fibroglandular density. Findings: Analyzed By CAD. There are a few small benign-appearing round and linear calcifications bilaterally redemonstrated. Benign-appearing bilateral axillary lymph nodes are again seen. There is no suspicious new group of microcalcifications or new suspicious mass in either breast. Overall Assessment: Benign, BI-RAD 2 Management: Screening Mammogram of both breasts in 1 year. . Patient should continue monthly self-breast exams. A clinical breast exam by your physician is recommended on an annual basis. This exam should not preclude additional follow-up of suspicious palpable abnormalities. Note on Elba scores and lifetime risk: 1. A Elba score greater than 3% is considered moderate risk. If this is the case, consider specialist referral to assess eligibility for a risk reducing agent. 2. If overall lifetime risk for the development of breast cancer is 20% or higher, the patient may qualify for future screening with alternating mammogram and breast MRI. [facility], , 12/19/2024 2:02 PM. Electronically signed and approved by: Dick Shane M.D.
== END | disposition home or self-care (01) ==
LOC: RADMAMWWP 12:33
PROVIDERS: ATTEND Pediatrics
DX: Z12.31 Encounter for screening mammogram for malignant neoplasm of breast (principal); R92.323 Mammographic fibroglandular density, bilateral breasts; Z78.0 Asymptomatic menopausal state; Z80.3 Family history of malignant neoplasm of breast
CPT/HCPCS: 77063; 77067